=== PATIENT | female | born 2000 | race Caucasian/White ===

== ENCOUNTER 2019-08-28 13:01 | Emergency (ER) | payer OTHER ==
[~2019-08-28] VITALS: Ht 175.3 cm; Wt 154.2 kg
[2019-08-28 13:38] LABS: URINE BILIRUBIN NEGATIVE (Negative); URINE BLOOD NEGATIVE (Negative); URINE CLARITY HAZY; URINE COLOR YELLOW; URINE GLUCOSE-RANDOM* NEGATIVE (Negative); URINE KETONES NEGATIVE (Negative); URINE LEUKOCYTES-REFLEX 2+ (Negative); URINE NITRITE-REFLEX NEGATIVE (Negative); URINE PROTEIN (DIPSTICK) NEGATIVE (Negative); URINE UROBILINOGEN 0.2 E.U./dl (0.2-1.0)
[2019-08-28 13:48] LABS: CASTS None Seen /LPF (None Seen); MUCUS >6 Heavy strn/LPF (None Seen); SQUAMOUS >10 Many /LPF (0-3)
[2019-08-28 13:50] LABS: CRYSTALS None Seen /LPF (None Seen); URINE RBC 0-2 Rare /HPF (0-2)
[2019-08-28] MEDS ORDERED: FLAGYL500 M1 PO (14:24)
[2019-08-28] MEDS ORDERED: CYCLOBENZAPRINE5 MG PO (14:43)
[2019-08-28] MEDS ORDERED: LIDOCAINE PAIN1 EACH TOP (14:43)
[2019-08-28] MEDS ORDERED: MOBIC15 MG PO (14:43)
[2019-08-28 15:05] VITALS: BP 111/76
== END 2019-08-28 15:05 | disposition home or self-care (01) ==
LOC: ER 13:01
PROVIDERS: Physician Assistant
DX: A59.9 Trichomoniasis, unspecified (principal)